=== PATIENT | male | born 1995 | race Caucasian/White ===

== ENCOUNTER 2017-02-22 00:38 | Emergency (ER) | payer MEDICAID, SELFPAY ==
[~2017-02-22] VITALS: Ht 182.9 cm; Wt 78.2 kg
[2017-02-22 02:14] LABS: BLOOD UREA NITROGEN 8 mg/dL (7-18)
[2017-02-22 03:03] VITALS: BP 136/76
== END 2017-02-22 03:06 | disposition home or self-care (01) ==
LOC: ED 02:49
DX: M79.632 Pain in left forearm (principal); F11.10 Opioid abuse, uncomplicated
CPT/HCPCS: 36415; 80048; 82040; 85025; 99284

== ENCOUNTER 2017-05-23 18:40 | Emergency (ER) | payer MEDICAID, OTHER ==
[~2017-05-23] VITALS: Ht 185.4 cm; Wt 76.0 kg
[2017-05-23 18:43] VITALS: BP 128/72
[2017-05-23] MEDS ORDERED: SILVER SULF. CRM 1% , 25GM TP ONE (19:00)
[2017-05-23] MEDS ORDERED: SILVER SULF. CRM 1% , 25GM ONE (19:01)
== END 2017-05-23 19:41 | disposition home or self-care (01) ==
LOC: ED 19:30
DX: T23.201A Burn of second degree of right hand, unspecified site, initial encounter (principal); T23.231A Burn of second degree of multiple right fingers (nail), not including thumb, initial encounter; T31.0 Burns involving less than 10% of body surface; F15.10 Other stimulant abuse, uncomplicated; F11.10 Opioid abuse, uncomplicated; X08.8XXA Exposure to other specified smoke, fire and flames, initial encounter; Y93.E9 Activity, other interior property and clothing maintenance; Y99.8 Other external cause status; Y92.099 Unspecified place in other non-institutional residence as the place of occurrence of the external cause
CPT/HCPCS: 16020; 99283; 99284

== ENCOUNTER 2017-11-01 12:17 | Emergency (ER) | payer SELFPAY ==
[~2017-11-01] VITALS: Ht 182.9 cm; Wt 73.0 kg
[2017-11-01] MEDS ORDERED: SODIUM CHLORIDE 0.9% 1,000ML IVBOLUS ONE ×3 (13:30→18:30)
[2017-11-01] MEDS ORDERED: PROCHLORPERAZINE 5 MG/ML, 2ML IVPush ONE (13:30)
[2017-11-01] MEDS ORDERED: SODIUM CHLORIDE FLUSH 10ML SYR IVF ONE (13:30)
[2017-11-01] MEDS ORDERED: KETOROLAC 30 MG/1 ML IVPush ONE (13:30)
[2017-11-01] MEDS ORDERED: DIPHENHYDRAMINE 50 MG/ML, 1ML IVPush ONE (13:30)
[2017-11-01] MEDS ORDERED: PROCHLORPERAZINE 5 MG/ML, 2ML ONE (13:45)
[2017-11-01] MEDS ORDERED: DIPHENHYDRAMINE 50 MG/ML, 1ML ONE (13:45)
[2017-11-01 18:57] LABS: MEAN CORPUSCULAR HEMOGLOBIN 29.4 pg (27.5-34.5); MEAN CORPUSCULAR HGB CONC 33.8 g/dL (33.2-36.2); MEAN PLATELET VOLUME 7.8 fL (7.4-10.4); PLATELET COUNT 219 x10^3/uL (130-400); RED BLOOD COUNT 4.46 x10^6/uL (4.38-5.82); RED CELL DISTRIBUTION WIDTH 12.3 % (9.4-14.8)
[2017-11-01 19:01] LABS: ALBUMIN 3.2 g/dL (3.4-5.0); ANION GAP 8 mmol/L (5-15); CALCIUM 8.4 mg/dL (8.5-10.1); CHLORIDE 109 mmol/L (98-107); CREATININE 1.02 mg/dL (0.7-1.3)
[2017-11-01 19:05] LABS: TROPONIN I < 0.015 ng/mL (0.000-0.045)
[2017-11-01 19:19] LABS: MD YES
[2017-11-01 19:23] LABS: BAND#(MANUAL) 1.04 x10^3/uL; BANDS%(MANUAL) 10 % (0-7); LYMPH#(MANUAL) 0.42 x10^3/uL (1-3.4); LYMPHS% (MANUAL) 4 % (22-44); MONOS#(MANUAL) 0.73 x10^3/uL (0.3-2.7); MONOS% (MANUAL) 7 % (2-9); SEG#(MANUAL) 8.22 x10^3/uL (1.8-6.8); SEGS% (MANUAL) 79 % (42-75)
[2017-11-01 19:24] LABS: <PLATELET ESTIMATE> ADEQUATE; <PLT MORPHOLOGY> NORMAL PLT MORPH; <RBC MORPHOLOGY> NORMAL
[2017-11-01] MEDS ORDERED: OMNIPAQUE 350 MG/ML, 100ML BOTTLE ONE (21:48)
[2017-11-01 22:05] VITALS: BP 134/74
== END 2017-11-01 22:59 | disposition home or self-care (01) ==
LOC: ED 15:35
DX: G43.C0 Periodic headache syndromes in child or adult, not intractable (principal); F11.10 Opioid abuse, uncomplicated; F15.10 Other stimulant abuse, uncomplicated
CPT/HCPCS: 36415; 70450; 70496; 71045; 80048; 82040; 84484; 85025; 93005; 96361; 96374; 96375; 99285; J0780; J1200; J7030; Q9967

== ENCOUNTER 2018-09-19 07:53 | Emergency (ER) | payer MEDICAID ==
[~2018-09-19] VITALS: Ht 182.9 cm; Wt 81.7 kg
[2018-09-19 08:18] VITALS: BP 147/80
[2018-09-19] MEDS ORDERED: HYDROcodone/APAP 5/325 TABLET PO ONE (08:30)
[2018-09-19] MEDS ORDERED: HYDROcodone/APAP 5/325 TABLET ONE (08:38)
== END 2018-09-19 10:35 | disposition home or self-care (01) ==
LOC: ED 09:50
DX: S62.002A Unspecified fracture of navicular [scaphoid] bone of left wrist, initial encounter for closed fracture (principal); S79.912A Unspecified injury of left hip, initial encounter; F17.200 Nicotine dependence, unspecified, uncomplicated; W19.XXXA Unspecified fall, initial encounter; Y93.89 Activity, other specified; Y92.009 Unspecified place in unspecified non-institutional (private) residence as the place of occurrence of the external cause; Y99.8 Other external cause status
CPT/HCPCS: 29125; 99283